=== PATIENT | female | born 1940 | race Caucasian/White ===

== ENCOUNTER → 2018-07-11 08:10 | Outpatient (CLI) | payer MEDICARE, OTHER, SELFPAY ==
--- NOTE | 2018-07-11 | DI.MG.S_ITS ---
BILATERAL DIGITAL SCREENING MAMMOGRAM 3D/2D WITH CAD: 07/11/2018 CLINICAL: Routine screening. Family history of breast cancer. Comparison is made to exams dated: 08/15/2016 mammogram, 06/22/2015 mammogram, and 06/16/2014 mammogram - [facility]. There are scattered fibroglandular elements in both breasts. Current study was also evaluated with a Computer Aided Detection (CAD) system. There is possible architectural distortion in the right breast middle depth upper region seen on the mediolateral oblique view only, best seen on RMLO tomosynthesis slice 21/76. There also is an asymmetry in the right breast posterior depth upper region seen on the mediolateral oblique view only. This is not seen on prior exams but appears to have a fatty center/hilum. No other significant masses, calcifications, or other findings are seen in either breast. IMPRESSION: INCOMPLETE: NEEDS ADDITIONAL IMAGING EVALUATION 1) The possible architectural distortion in the right breast middle depth upper region seen on the mediolateral oblique view only is indeterminate. Additional views with possible ultrasound are recommended. 2) The asymmetry in the right breast posterior depth upper region seen on the mediolateral oblique view only likely represents a lymph node and is indeterminate. Additional views with possible ultrasound are recommended. This exam was interpreted at Station ID: [id number]. NOTE: For mammograms, a report in lay terms will be sent to the patient. Approximately 15% of breast malignancies will not be visualized mammographically. In the management of a palpable breast mass, a negative mammogram must not discourage biopsy of a clinically suspicious lesion. Electronically Signed By: Lukas Kennedy M.D. ecl/:07/11/2018 08:56:41 letter sent: Additional Imaging Needed ACR BI-RADS Category 0: Incomplete 3340F
== END ==
PROVIDERS: Family Provider Family Medicine; PCP Family Medicine; Visit Provider Family Medicine
DX: Z12.31 Encounter for screening mammogram for malignant neoplasm of breast (principal); Z80.3 Family history of malignant neoplasm of breast
CPT/HCPCS: 77063; 77067

== ENCOUNTER → 2018-08-01 14:14 | Outpatient (CLI) | payer MEDICARE, OTHER, SELFPAY ==
--- NOTE | 2018-08-01 | DI.MG.S_ITS ---
UNILATERAL RIGHT DIGITAL DIAGNOSTIC MAMMOGRAM 3D/2D WITH ADDITIONAL VIEWS: 08/01/2018 CLINICAL: Additional evaluation requested from prior study. Comparison is made to exams dated: 07/11/2018 mammogram, 08/15/2016 mammogram, and 06/22/2015 mammogram - [facility]. There are scattered fibroglandular elements in right breast. Previously identified possible architectural distortion in the right breast middle depth upper region seen on comparison screening mammograms persists with additional views and appears to localize to the outer right breast on tomosynthesis views. Previously identified asymmetry in the right breast posterior depth upper region seen on the mediolateral oblique view only on screening mammograms persists with additional views, and appears to have a fatty hilum consistent with a lymph node. No significant masses, calcifications, or other findings are seen in the breast. IMPRESSION: INCOMPLETE: NEEDS ADDITIONAL IMAGING EVALUATION Previously identified possible architectural distortion in the right breast middle depth upper region seen on comparison screening mammograms persists with additional views and appears to localize to the outer right breast on tomosynthesis views. A targeted ultrasound of the upper outer right breast is recommended for further evaluation, and will be performed immediately following this exam. This exam was interpreted at Station ID: [id number]. NOTE: For mammograms, a report in lay terms will be sent to the patient. Approximately 15% of breast malignancies will not be visualized mammographically. In the management of a palpable breast mass, a negative mammogram must not discourage biopsy of a clinically suspicious lesion. Electronically Signed By: Lukas Kennedy M.D. ecl/:08/01/2018 17:04:31 letter sent: Additional Imaging Needed ACR BI-RADS Category 0: Incomplete 3340F
--- NOTE | 2018-08-01 | DI.US.S_ITS ---
LIMITED ULTRASOUND OF RIGHT BREAST AND AXILLA: 08/01/2018 CLINICAL: Patient returns for additional imaging over a suspected mass in the right breast. Comparison is made to exams dated: 08/01/2018 mammogram, 07/11/2018 mammogram, and 08/15/2016 mammogram - [facility]. Real-time and Doppler ultrasound of the right breast upper outer quadrant and axilla regions were performed. Figueredo scale images of the real-time examination were reviewed. There is 0.8 cm x 0.4 cm x 0.3 cm irregular mass with an indistinct margin in the right breast at 10 o'clock 2 cm from the nipple. This irregular mass is hyperechoic with posterior acoustic shadowing. This correlates with mammography findings. There is suspected associated architectural distortion. Color flow imaging demonstrates that there is no vascularity present. Targeted ultrasound of the right axilla demonstrates morphologically normal lymph nodes. IMPRESSION: SUSPICIOUS OF MALIGNANCY 1) The 0.8 cm x 0.4 cm x 0.3 cm irregular mass in the right breast is at a low suspicion for malignancy. An ultrasound guided biopsy is recommended. 2) No right axillary lymphadenopathy. These results and recommendations were discussed with the patient at the time of the exam by the [facility] Radiologist Dr. Josh Taylor in person. This exam was interpreted at Station ID: [id number]. Electronically Signed By: Lukas Kennedy M.D. ecl/:08/01/2018 17:08:32 letter sent: Biopsy Required Ultrasound BI-RADS: 4a Suspicious abnormality - low suspicion for malignancy
== END ==
PROVIDERS: Family Provider Family Medicine; PCP Family Medicine; Visit Provider Family Medicine
DX: R92.8 Other abnormal and inconclusive findings on diagnostic imaging of breast (principal); N63.11 Unspecified lump in the right breast, upper outer quadrant
CPT/HCPCS: 76642; 77065; G0279

== ENCOUNTER → 2018-08-31 08:17 | Outpatient (CLI) | payer MEDICARE, OTHER, SELFPAY ==
--- NOTE | 2018-08-31 | PATH_ITS ---
[facility] Accession Number: [id number] . 01 Material submitted: . RIGHT BREAST . 01 Clinical history: . 10 O'CLOCK 2CM FROM NIPPLE . 02 Diagnosis: Right Breast, Needle Core Biopsies: Benign breast parenchyma. Negative for atypical hyperplasia, in situ or invasive carcinoma. Multiple additional sections examined. MRV/09/04/2018 . 02 Comment: As part of routine quality control supervisor, Dr. Bishop has reviewed the initial levels from this case and agrees with the above diagnosis. . The preliminary findings in this case were discussed with Dr. Taylor by Dr. Fransisco Jacinto on 09/03/2018 at 1:10 p.m. . 02 Electronically signed: . Fransisco Jacinto MD, PhD, Pathologist NPI- [id number] . 01 Gross description: . Received one formalin-filled container, labeled with the patient's name and designated right breast 10 o'clock, 2 cm from nipple. The specimen is received with plastic filter. Sample loose in container and consists of multiple light yellow portions of soft tissue which aggregate to 1.0 x 0.4 x 0.2 cm. The specimen is filtered and entirely submitted in one cassette. Collection date is 08/31/2018. Collection time: 9:10 a.m. per container. Total fixation time: 12 hours up to 24. ([facility]:[id number]) /MRV . 02 Pathologist provided ICD-10: N63.11 . 02 CPT . 162552 Specimen Comment: A duplicate report has been generated due to demographic updates. Performed at: 01 [facility] [address] [place] [address], [place], [place] [id number] MD Rio Anthony MD Phone: [phone] Performed at: 02 [facility] [place] [address] [place] [id number] MD Issac Carrera MD Phone: [phone]
--- NOTE | 2018-08-31 | DI.MG.S_ITS ---
UNILATERAL RIGHT DIGITAL DIAGNOSTIC MAMMOGRAM: 08/31/2018 CLINICAL: Right breast mass. Clip placement. Comparison is made to exams dated: 08/01/2018 mammogram, 07/11/2018 mammogram, and 08/15/2016 mammogram - [facility]. There are scattered fibroglandular elements in right breast. There is an expected post-biopsy marker in the right breast at 11 o'clock anterior depth. IMPRESSION: POST PROCEDURE MAMMOGRAM FOR MARKER PLACEMENT The biopsy clip marker is at the site of US guided biopsy from today, expected position. NOTE: For mammograms, a report in lay terms will be sent to the patient. Approximately 15% of breast malignancies will not be visualized mammographically. In the management of a palpable breast mass, a negative mammogram must not discourage biopsy of a clinically suspicious lesion. Electronically Signed By: Josh Taylor M.D. [facility]/:09/03/2018 15:35:57 ACR BI-RADS Category Post-procedure mammogram for marker placement
--- NOTE | 2018-08-31 | DI.US.S_ITS ---
ULTRASOUND GUIDED BIOPSY RIGHT BREAST USING VACUUM DEVICE WITH MARKING DEVICE INSERTED AND POST MAMMOGRAPHIC IMAGIN08/31/2018 CLINICAL: Right breast mass. PATIENT CONSENT: Risks (minor bleeding, infection, vasovagal reaction and repeat procedure), benefits and alternatives were explained to the patient and written informed consent was obtained. Correlation is made to exams dated: 08/01/2018 ultrasound, 08/01/2018 mammogram, and 07/11/2018 mammogram - [facility]. An ultrasound guided biopsy using real-time ultrasound was performed for the concerning 0.3 cm x 0.4 cm x 0.3 cm circumscribed irregular shaped mass located in the right breast at 10 o'clock position. The skin was prepped in the usual manner. Local anesthetic was administered to the access site. A skin naina was made in the breast. The abnormality was approached from the lateral aspect. A 13 gauge biopsy needle was placed adjacent to the abnormality under ultrasound guidance. Once the needle was documented to be in the correct location, four specimens were obtained using the Mammotome biopsy system. The patient received additional local anesthetic during the procedure. A clip was inserted into the biopsy cavity. A sterile dressing was applied to the access site. Post procedure mammographic imaging demonstrates the location device at the targeted area. The specimens were sent to the laboratory for pathological analysis. IMPRESSION: ULTRASOUND GUIDED BIOPSY BENIGN Ultrasound guided biopsy of the 0.3 cm x 0.4 cm x 0.3 cm mass in the right breast at 10 o'clock position was successful. Final pathology results identified benign breast parenchyma negative for atypical hyperplasia, in-situ, or invasive carcinoma. These results are concordant with imaging. Return to annual screening mammography recommended, next due in June 2019. These results will be communicated to the patient's referring provider. This exam was interpreted at Station ID: [id number]. Josh Kennedy M.D. [facility],ecl/:09/06/2018 10:49:31
== END ==
PROVIDERS: PCP Family Medicine; Visit Provider Family Medicine
DX: N63.11 Unspecified lump in the right breast, upper outer quadrant (principal)
CPT/HCPCS: 19083; 77065; 88305

== ENCOUNTER → 2019-02-25 10:03 | Outpatient (CLI) | payer MEDICARE, OTHER, SELFPAY ==
--- NOTE | 2019-02-25 | DI.US.S_ITS ---
PROCEDURE: US PELVIC COMPLETE INDICATIONS: ABDOMINAL PAIN TECHNIQUE: Real-time scanning was performed of the pelvic organs, with image documentation. Additional endovaginal scanning was necessary due to incomplete visualization of the adnexal and endometrial structures by transabdominal scanning. COMPARISON: None. FINDINGS: Transabdominal scanning: Limited scanning through the kidneys shows no hydronephrosis. No pathologic free abdominal or pelvic fluid. Endovaginal scanning: Uterus: Uterus is surgically absent. Ovaries: Surgically absent IMPRESSION: The uterus and ovaries appear surgically absent. No abnormal free fluid or masslike structure is found. Dictated by: Josh Taylor M.D. on 02/25/2019 at 13:21 Approved by: Josh Taylor M.D. on 02/25/2019 at 13:22
--- NOTE | 2019-02-25 | DI.US.S_ITS ---
PROCEDURE: US ABDOMEN COMPLETE INDICATIONS: ABDOMINAL PAIN TECHNIQUE: Real-time scanning was performed of the abdominal and retroperitoneal organs, with image documentation. COMPARISON: None. FINDINGS: Liver: Liver is normal in size and homogeneous in echotexture. Gallbladder: The gallbladder has been previously resected Biliary ducts: Intrahepatic bile ducts are non-dilated. Extrahepatic bile duct caliber measures 7.2 mm. Normal is 6-7 mm or less in diameter, or 10 mm or less post-cholecystectomy. Pancreas: Visualized portions of the pancreas are sonographically normal. Spleen: Spleen is normal in size and homogeneous in echotexture except for scattered punctate calcifications consistent with old granulomatous disease. Kidneys: Kidneys are normal in size and echotexture. Right kidney measures 12.2 cm long; left kidney measures 12.0 cm long. No hydronephrosis or nephrolithiasis. No solid masses. Aorta: Visualized aorta is normal in caliber at less than 3 cm. Iliacs: Proximal common iliac arteries are normal in caliber at less than 2.5 cm. IVC: Intrahepatic inferior vena cava is patent. Miscellaneous: No free abdominal fluid. IMPRESSION: Prior cholecystectomy. Seen within the spleen as punctate calcifications. A source of new abdominal pain is not found. Dictated by: Josh Taylor M.D. on 02/25/2019 at 13:22 Approved by: Josh Taylor M.D. on 02/25/2019 at 13:24
== END ==
PROVIDERS: PCP Family Medicine; Visit Provider Family Medicine
DX: R10.9 Unspecified abdominal pain (principal); Z90.722 Acquired absence of ovaries, bilateral; Z90.710 Acquired absence of both cervix and uterus; Z90.49 Acquired absence of other specified parts of digestive tract
CPT/HCPCS: 76700; 76856

== ENCOUNTER → 2019-08-28 08:06 | Outpatient (CLI) | payer MEDICARE, OTHER, SELFPAY ==
--- NOTE | 2019-08-28 | DI.MG.S_ITS ---
BILATERAL DIGITAL SCREENING MAMMOGRAM 3D/2D WITH CAD: 08/28/2019 CLINICAL: Routine screening. Family history of breast cancer. Comparison is made to exams dated: 07/11/2018 mammogram, 08/15/2016 mammogram, and 06/22/2015 mammogram - [facility]. There are scattered fibroglandular elements in both breasts. Current study was also evaluated with a Computer Aided Detection (CAD) system. There is a biopsy clip in the right breast. No significant masses, calcifications, or other findings are seen in either breast. There has been no significant interval change. IMPRESSION: NEGATIVE There is no mammographic evidence of malignancy. A 1 year screening mammogram is recommended. This exam was interpreted at Station ID: [id number]. NOTE: For mammograms, a report in lay terms will be sent to the patient. Approximately 15% of breast malignancies will not be visualized mammographically. In the management of a palpable breast mass, a negative mammogram must not discourage biopsy of a clinically suspicious lesion. Electronically Signed By: Librado watson/reshma:08/28/2019 09:22:41 letter sent: Normal Exam ACR BI-RADS Category 1: Negative [id number]
== END ==
PROVIDERS: PCP Family Medicine; Visit Provider Family Medicine
DX: Z12.31 Encounter for screening mammogram for malignant neoplasm of breast (principal); Z80.3 Family history of malignant neoplasm of breast
CPT/HCPCS: 77063; 77067

== ENCOUNTER 2023-01-23 17:03 | Emergency (ER) | payer MEDICARE, OTHER, SELFPAY ==
[2023-01-23] VITALS (16 sets, daily range): BP systolic 169–230; BP diastolic 75–98; PULSE 87–155; RESP 14–25; TEMP 36.6; O2SAT 94–99
--- NOTE | 2023-01-23 17:20 | DI.RAD.S_ITS ---
PROCEDURE: XR CHEST 1V INDICATIONS: chest pain TECHNIQUE: One view of the chest was acquired. COMPARISON: [facility], , CHEST 2 VIEW, 04/05/2011, 13:52. FINDINGS: Surgical changes and devices: None. Lungs and pleura: On this semiupright portable chest examination, no large pneumothorax or large pleural effusions are seen. No focal infiltrates are seen. Mediastinum: Mediastinal contours appear normal. Heart size is normal. Bones and chest wall: No suspicious bony lesions. Age-appropriate bony degenerative changes are seen. Overlying soft tissues appear unremarkable. IMPRESSION: Limited portable chest examination, without a significant cardiopulmonary abnormality identified. Dictated by: Haile Kaba M.D. on 01/23/2023 at 17:26 Approved by: Haile Kaba M.D. on 01/23/2023 at 17:26
[2023-01-23 17:39] LABS: PTT Partial Thromboplastin Tim 34 SECONDS (26-36)
[2023-01-23 17:44] LABS: Alanine Aminotransferase 29 IU/L (<35); Albumin 4.6 g/dL (3.5-5.0); Albumin Globulin Ratio 1.2 (1.0-2.8); Alkaline Phosphatase 89 U/L (38-126); Aspartate Aminotransferase 31 IU/L (14-36); BUN Creatinine Ratio 30.2 (6-22); Bilirubin Total 0.6 mg/dL (0.2-1.3); Blood Urea Nitrogen 13 mg/dL (7-17); Calcium 9.8 mg/dL (8.4-10.2); Carbon Dioxide 33 mmol/L (22-32); Chloride 89 mmol/L (98-107); Creatine Kinase 35 U/L (30-135); Estimated Glomerular Filt Rate > 60 mL/min (>60); Globulin 3.9 g/dL (1.7-4.1); Glucose 133 mg/dL (80-110); Lipase 42 U/L (23-300); Magnesium 1.7 mg/dL (1.6-2.3); Potassium 3.3 mmol/L (3.4-5.1); Sodium 131 mmol/L (137-145); Total Protein 8.5 g/dL (6.3-8.2)
[2023-01-23 17:45] LABS: Add Manual Diff / Slide Review NO; Basophils Absolute Auto 100 /uL (0-100); Eosinophils Absolute Auto 200 /uL (0-450); Eosinophils Percent Auto 1.4 % (2-4); Hematocrit 47.3 % (36-46); Hemoglobin 16.6 g/dL (12.0-16.0); Lymphocytes Absolute Auto 5100 /uL (1100-4500); Lymphocytes Percent Auto 47.9 % (25-40); Mean Corpuscular Volume 88.7 fL (80-100); Monocytes Absolute Auto 600 /uL (0-900); Monocytes Percent Auto 5.8 % (3-14); Neutrophils Absolute Auto 4700 /uL (1500-7000); Neutrophils Percent Auto 43.9 % (50-75); Platelet Count 231 X10^3/uL (150-400); Red Blood Cell Count 5.34 X10^6/uL (4.0-5.2); Red Cell Distribution Width 12.5 % (11.6-14.8); White Blood Cell Count 10.6 X10^3/uL (4.5-11.0)
[2023-01-23 17:57] LABS: HEMOLYSIS 16 (0-50); Troponin I < 0.012 ng/mL (0.01-0.034)
--- NOTE | 2023-01-23 18:27 | ED.ARRPALP ---
HPI - Arrhythmia/Palpitations General Chief Complaint: Arrhythmia/Palpitations Stated Complaint: echo for hypertension sent from dr. duane blakely Time Seen by Provider: 01/23/23 17:56 Source: patient Mode of arrival: Wheelchair Limitations: no limitations History of Present Illness HPI narrative: Patient is an 82-year-old female. History of hypertension and Graves disease on levothyroxine. Was here at the hospital obtaining a echocardiogram that was ordered as an outpatient by her primary doctor. This was ordered because the patient was told that she is had an abnormal heart rhythm. This was found what she was having some dental work performed. She is no diagnosis of atrial fibrillation prior to this point. It was reported that during the echocardiogram was noted that her heart rate was in the 150s. The patient is asymptomatic. She is having no chest pain, no palpitations, no lightheadedness, no shortness of breath. She states she does have a history of high blood pressure in his taking medication for this. Is not on any anticoagulation. Related Data Home Medications Medication Instructions Recorded Confirmed amlodipine 5 mg tablet 5 mg PO DAILY 01/23/23 01/23/23 hydrochlorothiazide 25 mg tablet 25 mg PO BID 01/23/23 01/23/23 levothyroxine 100 mcg tablet 100 mcg PO DAILY 01/23/23 01/23/23 Previous Rx's Medication Instructions Recorded apixaban 2.5 mg tablet (Eliquis) 2.5 mg PO BID #60 tabs 01/23/23 metoprolol succinate 25 mg 25 mg PO DAILY #30 tabs 01/23/23 tablet,extended release 24 hr Allergies Allergy/AdvReac Type Severity Reaction Status Date / Time aspirin Allergy Unknown Verified 01/23/23 17:19 codeine Allergy Unknown Verified 01/23/23 17:19 epinephrine Allergy Unknown Verified 01/23/23 17:19 fexofenadine Allergy Unknown Verified 01/23/23 17:19 pneumococcal vaccine Allergy Unknown Verified 01/23/23 17:19 Sulfa (Sulfonamide Allergy Unknown Verified 01/23/23 17:19 Antibiotics) Review of Systems Constitutional Constitutional: Reports system reviewed and no additional complaints, except as documented Cardiovascular Cardiovascular: Reports system reviewed and no additional complaints, except as documented Respiratory Respiratory: Reports system reviewed and no additional complaints, except as documented Integumentary/Breasts Skin/Breast: Reports system reviewed and no additional complaints, except as documented Hematologic/Lymphatic On Anticoagulants: No Patient History Medical History Graves disease Hypertension Hypothyroidism Social History Smoking Status: Never smoker Smoking Status: Never smoker alcohol intake frequency: 0-2 drinks per day Substance Use Type: does not use Exam Initial Vital Signs Initial Vital Signs: Vital Signs Temperature 97.8 F 01/23/23 17:07 Pulse Rate 150 H 01/23/23 17:07 Respiratory Rate 22 01/23/23 17:07 Blood Pressure 230/98 H 01/23/23 17:07 Pulse Oximetry 97 01/23/23 17:07 Oxygen Delivery Method Room Air 01/23/23 17:07 Const General: cooperative and comfortable HENMT Head: normal to inspection and normocephalic Resp Effort & Inspection: normal respiratory effort Auscultation: clear to auscultation bilaterally Cardio Rate: tachycardic Rhythm: abnormal rhythm GI Inspection: normal to inspection and non-distended Skin General: no rashes or lesions noted Neuro General: patient alert, patient awake and moves all extremities Extrem General: capillary refill normal Course Orders Ordered: ED Orders 01/23/23 19:25 EKG-12 Lead Stat Discontinued Medications Alprazolam (Alprazolam 0.5 Mg Tablet) 0.5 mg PO NOW ONE Stop: 01/23/23 18:37 Last Admin: 01/23/23 18:42 Dose: 0.5 mg Documented By: JUAN Apixaban (Apixaban 5 Mg Tablet) 2.5 mg PO NOW ONE Stop: 01/23/23 20:10 Last Admin: 01/23/23 20:20 Dose: 2.5 mg Documented By: SRIRAM Metoprolol Tartrate (Metoprolol Ir 25 Mg Tablet) 25 mg PO NOW ONE Stop: 01/23/23 18:29 Last Admin: 01/23/23 18:42 Dose: 25 mg Documented By: CTS Vital Signs Vital signs: Vital Signs - 8 hr 01/23/23 19:20 01/23/23 19:30 01/23/23 19:31 Pulse Rate 95 H 90 Respiratory Rate 25 H 22 Blood Pressure 169/75 H Pulse Oximetry 98 98 01/23/23 19:31 01/23/23 19:40 01/23/23 19:50 Pulse Rate 89 94 H 88 Respiratory Rate 19 25 H 15 Blood Pressure Pulse Oximetry 98 98 98 01/23/23 20:00 01/23/23 20:01 01/23/23 20:01 Pulse Rate 90 90 Respiratory Rate 21 19 Blood Pressure 169/81 H Pulse Oximetry 97 97 01/23/23 20:10 Pulse Rate 87 Respiratory Rate 22 Blood Pressure Pulse Oximetry 97 MDM - Arrhythmia/Palpitations Medical Records Attestation: I reviewed the patient's medical records. Lab Data Attestation: I reviewed the patient's lab results. 01/23/23 17:15 01/23/23 17:15 Labs: Lab Results 01/23/23 01/23/23 01/23/23 Range/Units 17:15 17:15 17:15 WBC 10.6 (4.5-11.0) X10^3/uL RBC 5.34 H (4.0-5.2) X10^6/uL Hgb 16.6 H (12.0-16.0) g/dL Hct 47.3 H (36-46) % MCV 88.7 (80-100) fL MCH 31.0 (26-34) PG MCHC 35.0 (30-36) % RDW 12.5 (11.6-14.8) % Plt Count 231 (150-400) X10^3/uL Neut % (Auto) 43.9 L (50-75) % Lymph % (Auto) 47.9 H (25-40) % [place] % (Auto) 5.8 (3-14) % Eos % (Auto) 1.4 L (2-4) % Baso % (Auto) 1.0 (0-2) % Neut # (Auto) 4700 (9989-2386) /uL Lymph # (Auto) 5100 H (7531-4906) /uL [place] # (Auto) 600 (0-900) /uL Eos # (Auto) 200 (0-450) /uL Baso # (Auto) 100 (0-100) /uL PT 12.0 (10.1-12.7) SECONDS INR 1.0 (0.9-1.3) APTT 34 (26-36) SECONDS Sodium 131 L (137-145) mmol/L Potassium 3.3 L (3.4-5.1) mmol/L Chloride 89 L (98-107) mmol/L Carbon Dioxide 33 H (22-32) mmol/L BUN 13 (7-17) mg/dL Creatinine 0.43 L (0.52-1.04) mg/dL Estimated GFR > 60 (>60) mL/min BUN/Creatinine Ratio 30.2 H (6-22) Glucose 133 H (80-110) mg/dL Calcium 9.8 (8.4-10.2) mg/dL Magnesium 1.7 (1.6-2.3) mg/dL Total Bilirubin 0.6 (0.2-1.3) mg/dL AST 31 (14-36) IU/L ALT 29 (<35) IU/L Alkaline Phosphatase 89 (38-126) U/L Total Creatine Kinase 35 (30-135) U/L CK-MB (CK-2) TNP CK-MB (CK-2) Rel Index TNP Troponin I < 0.012 (0.01-0.034) ng/mL Total Protein 8.5 H (6.3-8.2) g/dL Albumin 4.6 (3.5-5.0) g/dL Globulin 3.9 (1.7-4.1) g/dL Albumin/Globulin Ratio 1.2 (1.0-2.8) Lipase 42 (23-300) U/L Urine Dip Bedside Urine Glucose Negative Bedside Urine Bilirubin - Negative Bedside Urine Ketone - Negative Urine Specific [place] 1.005 Bedside Urine Occult Blood - Negative Bedside Urine pH 7.0 Bedside Urine Protein - Negative Bedside Urine Urobilinogen - Negative Bedside Urine Nitrite - Negative Bedside Urine Leukocytes - Negative Esterase Imaging Data Chest x-ray: Radiologist's Impresson: PROCEDURE:? XR CHEST 1V ? INDICATIONS:? chest pain ? TECHNIQUE:? One view of the chest was acquired.? ? COMPARISON:? [facility], , CHEST 2 VIEW, 04/05/2011, 13:52. ? FINDINGS:? ? Surgical changes and devices:? None.? ? Lungs and pleura:? On this semiupright portable chest examination, no large pneumothorax or large pleural effusions are seen.? No focal infiltrates are seen.? ? Mediastinum:? Mediastinal contours appear normal.? Heart size is normal.? ? Bones and chest wall:? No suspicious bony lesions.? Age-appropriate bony degenerative changes are seen.? ? Overlying soft tissues appear unremarkable.? ? ? IMPRESSION:? ? Limited portable chest examination, without a significant cardiopulmonary abnormality identified.? ECG Data Attestation: I personally reviewed and interpreted this ECG as follows: Interpretation: Atrial fibrillation Ventricular rate 128 Normal axis Normal QRS Normal QTC Repeat EKG Sinus rhythm Ventricular rate 93 First-degree AV block AK interval 222 milliseconds Occasional PVCs No ST T wave changes MDM Narrative Medical decision making narrative: Initial EKG is not 100% consistent with atrial fibrillation and looks more like a sinus tachycardia however her exam she is most definitely in AFib with a very irregular rhythm and is tachycardic. Was also hypertensive upon arrival. She seems to be asymptomatic from all of these presenting events. Patient was given metoprolol and this improved her heart rate to less than 100 however she was still in atrial fibrillation. Her blood pressure improved as well. I did discuss all this with the patient. We discussed her blood pressure and how she should take her blood pressure at home and continue to do her medicines as directed. We will start her on a low dose of metoprolol for rate control. Patient does not require admission to the hospital for emergent cardioversion. She was advised that she most likely will need to follow-up with cardiology. Her echocardiogram from earlier today is not available for review as it his not yet been read. We also discussed anticoagulation. We discussed the risks and benefits of this medication. Discussed the risks of stroke with atrial fibrillation. We also discussed the risks of bleeding. She does use a walker but she states she really does not have any balance issues. It has been several years since she is had any sort of fall. She states that ?I do not want to have a stroke? so the plan will be is to start her on anticoagulation. She was given a dose here in the ER. Was given a prescription for the remainder. Advised that she contact her primary doctor tomorrow. She was given return precautions. She expressed understanding and agreement. Discharge Plan Departure Patient Disposition: Home Clinical Impression: Atrial fibrillation, Hypertension Instructions: DI for Atrial Fibrillation Activity Restrictions/Additional Instructions: I recommend that you continue to take your medications as directed including the 2 new medicines that you were prescribed this evening. Call your primary doctor's office tomorrow for a follow-up. Return to the emergency department for any new symptoms. Prescriptions: New metoprolol succinate 25 mg tablet extended release 24 hr 25 mg PO DAILY Qty: 30 0RF Eliquis 2.5 mg tablet 2.5 mg PO BID Qty: 60 0RF No Action amlodipine 5 mg tablet 5 mg PO DAILY Patient Comments: take 1 tablet by mouth once daily levothyroxine 100 mcg tablet 100 mcg PO DAILY Patient Comments: take 1 tablet once daily hydrochlorothiazide 25 mg tablet 25 mg PO BID Patient Comments: take 1 tablet by mouth twice a day Referrals: Duane Emerson MD [Primary Care Provider] - Stand Alone Forms: Patient Portal/API
[2023-01-23] MEDS: METOPROLOL IR 25 MG TABLET PO (18:42)
[2023-01-23] MEDS: ALPRAZolam 0.5 MG TABLET PO (18:42)
[2023-01-23] MEDS: APIXABAN 5 MG TABLET 2.5 MG PO (20:20)
== END 2023-01-23 20:35 | disposition home or self-care (01) ==
PROVIDERS: Emergency Medicine; Emergency Provider Emergency Medicine; PCP Family Medicine
DX: I48.91 Unspecified atrial fibrillation (principal); I10 Essential (primary) hypertension
CPT/HCPCS: 36415; 71045; 80053; 81003; 82550; 83690; 83735; 84484; 85025; 85610; 85730; 93005; 93306; 99284

== ENCOUNTER → 2025-05-30 13:02 | Outpatient (CLI) | payer MEDICARE, OTHER, SELFPAY ==
--- NOTE | 2025-05-30 13:03 | DI.MG.S_ITS ---
MM screening mammo BI: 05/30/2025. BI-RADS: 2 CLINICAL: 84-year old female for bilateral screening mammogram. No Tyrer-Cuzick risk score calculation due to patient's age being over 85 years old. Current reported family history of breast cancer: sister. The patient had a prior right breast biopsy. PRIOR EXAMS 08/28/2019, 08/31/2018, 08/01/2018, 07/11/2018. MAMMOGRAPHY TECHNIQUE: 2D and 3D (tomosynthesis) digital mammographic views obtained, with additional images as needed for full coverage. Current study was also evaluated with a Computer Aided Detection (CAD) system. DENSITY B. There are scattered areas of fibroglandular density. MAMMOGRAPHY FINDINGS Right: Biopsy marker present on the right. There are no suspicious masses, calcifications, or other findings in the breast. Left: No suspicious mass, asymmetry, microcalcification, or other abnormality seen. IMPRESSION: Right * No evidence of malignancy with benign findings. Left * No evidence of malignancy. RECOMMENDATIONS Bilateral * Annual screening mammography. OVERALL ASSESSMENT CATEGORY BI-RADS-2: Benign. [employer] recommends annual screening mammography beginning at age 40 for women with average risk of breast cancer. ELECTRONICALLY SIGNED: Shilpa Jimenez M.D. on 05/30/2025 at 11:00:00 PM PT Interpreting Station ID: [id number]
== END ==
LOC: MAMMO 13:03
PROVIDERS: PCP Family Medicine; Referring Provider Family Medicine; Visit Provider Family Medicine
DX: Z12.31 Encounter for screening mammogram for malignant neoplasm of breast (principal); Z80.3 Family history of malignant neoplasm of breast
CPT/HCPCS: 77063; 77067